=== PATIENT | female | born 2005 | race Two or more races ===

== ENCOUNTER 2025-05-06 07:52 | Inpatient (IN) | payer OTHER ==
[~2025-05-06] VITALS: Ht 162.6 cm; Wt 82.1 kg
[2025-05-06] MEDS ORDERED: ZYRTEC10 M3 (07:54)
[2025-05-06] MEDS ORDERED: ALBUTEROL (07:55)
[2025-05-06] MEDS ORDERED: RINGERS SOLUTION,LACTATED 1,000 ML IV STA (08:15)
[2025-05-06 09:14] LABS: BASO % 0.4 % (0.1-1.2); EOS # 0.29 (0.04-0.54); EOS % 3.2 % (0.7-7.0); LYMPH # 2.84 (1.18-3.74); LYMPH % 31.8 % (19.3-53.1); MEAN PLATELET VOLUME 11.00 fl (9.4-12.4); MONO # 0.47 (0.24-0.82); MONO % 5.3 % (4.7-12.5); NEUT # 5.27 (1.56-6.13); NEUT % 59.0 % (34.0-71.1); RED CELL DISTRIBUTION WIDTH 12.7 % (11.6-14.4)
[2025-05-06 09:44] LABS: INR 1.0
[2025-05-06 09:57] LABS: COVID-19 AG NEGATIVE (NEGATIVE)
[2025-05-06 09:59] LABS: URINE APPEARANCE Clear; URINE BILIRRUBIN Negative (NEGATIVE); URINE BLOOD Negative; URINE COLOR Yellow; URINE GLUCOSE Negative (NEGATIVE); URINE KETONE Negative (NEGATIVE); URINE LEUKOCYTE Negative; URINE NITRATE Negative; URINE PROTEIN Negative (NEGATIVE); URINE UROBILINOGEN 0.2 E.U./dl
[2025-05-06 10:02] LABS: URINE BACTERIA 127.1 uL (0.0-1933); URINE EPITHELIAL CELLS 3.5 uL (0.0-38.8); URINE WBC 4.1 uL (0.0-23.2)
[2025-05-06 10:06] LABS: URINE CAST 0.00 uL (0.0-1.40); URINE RBC 0.5 uL (0.0-20.8)
[2025-05-06] MEDS ORDERED: RINGERS SOLUTION,LACTATED 1,000 ML IV SCH (20:00)
[2025-05-07 04:17] VITALS: BP 114/68; O2SAT 100
== END 2025-05-07 00:05 | disposition home or self-care (01) | DRG 779 ==
LOC: EMR PED 07:52 → ER 07:52 → EMR PED 08:20 → O/R 12:49
PROVIDERS: Pediatrics; ADMIT Obstetrics & Gynecology; ATTEND Obstetrics & Gynecology
PROC: 10D17Z9 Manual Extraction of Products of Conception, Retained, Via Natural or Artificial Opening (ICD-10-PCS; principal; 2025-05-06 13:30)
DX: O02.1 Missed abortion (principal)